=== PATIENT | male | born 1985 ===

== ENCOUNTER 2023-12-26 12:56 | Inpatient (IN) | payer OTHER, SELFPAY ==
[2023-12-24] VITALS (10 sets, daily range): BP systolic 119–144; BP diastolic 69–84; BMI 31.0; BMI 30.4
--- NOTE | 2023-12-24 18:24 | ED.GENMED ---
History of Present Illness
General
Chief Complaint: Abdominal Pain
Source: patient
Exam Limitations: none
Time Seen by Provider: 12/24/23 18:02
History of Present Illness
History of Present Illness:
This is a 38 year old male that is brought in from the [facility] with c/o decreased urine output and not getting his medication. Patient state that he was arrested on Tuesday. State that he has not had any of his antirejection medication for the past
4 days. States that he normally urinates 4-5 times daily but he is only urinating once daily. Denies any fever, chills, chest pain, SOB, abd pain, nausea, vomiting, diarrhea, headache, dizziness, urinary burning.
Past History
Past History
ED Past Medical History: HTN, NIDDM and Renal failure
ED Past Surgical History: Urological (Kidney transplant 1.5 years ago at [facility]. ) and Other (gastric bypass, Left arm fistula, )
Social History
Tobacco: Non-smoker
Alcohol: None
Personal: Single
Living: [facility]dc
Review of Systems
Review of Systems
All Other Systems: ROS reviewed and negative except as documented in HPI and ROS
Constitutional: Reports no symptoms; Denies fever or chills
EENT: Reports no symptoms
Respiratory: Reports no symptoms; Denies cough or trouble breathing
Cardiac: Reports no symptoms; Denies chest pain
ABD/GI: Reports no symptoms; Denies abdominal pain, nausea, vomiting or diarrhea
: Reports other (Decreased output); Denies dysuria, frequency or urgency
Musculoskeletal: Reports no symptoms
Skin: Reports no symptoms
Neurological: Reports no symptoms; Denies dizzy or headache
Psychiatric: Reports no symptoms
Phy Exam
General Physical Exam
General Presentation: well appearing and no apparent distress
General age: appears stated age
General Skin: warm and dry
General Habitus: normal
General Mental: alert
General Hydration: appears well hydrated
ENT Exam
ENT Exam: TM's normal, pharynx normal and neck supple
Eye Exam
Eye Exam: EOMI
Cardiovascular Exam
Cardiovascular Exam: regular rate/rhythm, no edema, no murmur and normal peripheral pulses
Pulmonary Exam
Pulmonary Exam: lungs clear, no respiratory distress, no rales, chest non tender, no crackles, no rhonchi, no wheezing and no cough
Gastrointestinal Exam
Gastrointestinal Exam: normal bowel sounds, soft, no organomegaly, no pulsatile mass, non distended and tender (Slight LLQ only with palpation)
Musculoskeletal Exam
Musculoskeletal Exam: full ROM and no edema
Skin Exam
Skin Exam: normal color, warm/dry, no rash and no petechia
Psychiatric Exam
Psychiatric Exam: normal mood/affect
Course
Orders/Labs/Results
Orders:
Orders
12/24/23 Dinner
Potassium, 2 Gram
At Your Request: Full Participation
Low Potassium: Sodium, 2 Gram
12/24/23 17:15
Complete Blood Count/With Diff Urgent
Comprehensive Metabolic Panel Urgent
Magnesium Urgent
Comment: ADD ON
Phosphorus Urgent
Comment: ADD ON
12/24/23 18:22
0.9% Sodium Chloride 1000 ml [Nss] 1,000 ml IV BOLUS
12/24/23 18:30
Electrocardiogram (*1) Urgent
Reason for Study: Other
Other Reason for Exam: history of kidney disease
EKG- Treatment ONCE
12/24/23 18:33
Urinalysis Reflex To Culture Urgent
Date Specimen was Collected: 12/24/23
Time Specimen was Collected: 18:29
12/24/23 19:16
Mycophenolate [Cellcept] 500 mg PO NOW STA
12/24/23 19:19
Tacrolimus [Prograf] 1 mg PO NOW STA
Tacrolimus [Prograf] 5 mg PO NOW STA
12/24/23 20:11
Admit/Transfer Patient As Directed
Co-Sign Provider:
Level of Care: Observation services
Assign to:: Medical/Surgical
Physician / Group: hafsa forrest
Diagnosis: kidney transplant [facility] out of his anti-rejection meds;Oliguria poss larry
12/24/23 20:12
Code Status As Directed
Resuscitation Status: Full Code
12/24/23 20:15
Add On- LAB Urgent
Tests Added?: mag, phos
PRN Pain Medication Management As Directed
May give lesser potent ordered pain med per pt: Yes
preference::
Protocol:: Medication orders for pain may be administered in a
manner that supports deferring to patient preference
when the pt is:
- Requesting an ordered lesser potent pain medication.
Least to most potent pain medications are defined
as: acetaminophen < NSAID < tramadol < opioids
(morphine, oxycodone, hydromorphone).
- Requesting a lesser dose of the same medication IF
ORDERED.
- Requesting a less intrusive route of administration
if both routes are prescribed by the provider (PO <
IV).
12/24/23 20:26
Prednisone [Deltasone] 5 mg PO NOW STA
12/24/23 22:26
0.9% Sodium Chloride 1000 ml [Nss] 1,000 ml IV 60 mls/hr
Acetaminophen [Tylenol] 650 mg PO Q4HPRN PRN
Sodium Bicarbonate 1,300 mg PO BID
12/24/23 22:26
Case Management Consult ONCE
Case Management Consult: Discharge Planning
Requested By:: PHYSICIAN
Comment: pt from [facility] thy have not had his kidney anti rejection meds in 4 days and wont have until
possibly tuesday
Activity As Directed
Activity Level: As Tolerated
Intake/ Output As Directed
Frequency: Per unit guidelines
Vital Signs As Directed
Frequency: Per unit guidelines
Weight As Directed
Frequency: Daily
DX Deep Vein Thrombosis Video Routine
DX Deep Vein Thrombosis Video Routine
12/25/23 06:00
Complete Blood Count/With Diff IN AM
Comprehensive Metabolic Panel IN AM
Glycohemoglobin (HgbA1c) IN AM
12/25/23 07:30
Insulin Aspart Corrective Low [Novolog Flexpen-Low Resistance] See Protocol SC AC
12/25/23 08:00
Calcitriol [Rocaltrol] 0.25 mcg PO DAILY
Cholecalciferol (Vitamin D3) [VITAMIN D3 (cholecalciferol)] 50 mcg PO DAILY
Ferrous Sulfate [Feosol] 325 mg PO BID
Heparin 5,000 units SC Q12
Prednisone [Deltasone] 5 mg PO DAILY
Tacrolimus Xr [Envarsus Xr] 2 mg PO DAILY
Tacrolimus Xr [Envarsus Xr] 4 mg PO DAILY
mycophenolate mofetil 500 mg PO BID
12/26/23 06:00
Complete Blood Count/With Diff IN AM
Comprehensive Metabolic Panel IN AM
12/31/23 08:00
Ergocalciferol [Drisdol (Vitamin D2)] 50,000 units PO SA
Abnormal Lab Results
12/24/23 12/24/23
17:15 18:33
RBC 4.60 L 10^6/uL
(4.70-6.10)
Absolute Lymphs (auto) 0.7 L 10^3/uL
(1.2-3.4)
Neutrophils % 80.6 H %
(42.2-75.2)
Lymphocytes % 9.7 L %
(20.5-51.1)
Potassium 5.2 H mmol/L
(3.5-5.1)
BUN 27 H mg/dl
(9-20)
Creatinine 1.5 H mg/dL
(0.7-1.3)
Glucose 149 H mg/dl
(70-99)
Urine Glucose Trace A
(Negative)
12/24/23 17:15
12/24/23 17:15
Hyperkalemia, Renal insufficiency (no prior labs for comparison), Dehydration, hyperglycemia. Urine negative for infection.
Vital Signs
Initial and Last Documented VS:
Initial Vital Signs
Temp Pulse Resp BP Pulse Ox
97.8 F 86 17 140/84 97
12/24/23 16:54 12/24/23 16:54 12/24/23 16:54 12/24/23 16:54 12/24/23 16:54
Last Documented Vital Signs
Temp Pulse Resp BP Pulse Ox
97.9 F 85 14 143/83 98
12/24/23 23:55 12/24/23 23:55 12/24/23 23:55 12/24/23 23:55 12/24/23 23:55
MDM/Problems Addressed
Differential Diagnosis Includes:
Dehydration, Kidney rejection
MDM/Problems Addressed:
This is a 38 year old male that comes in with c/o not getting any of his medication for 4 days and his urine output has been decreased.
Will check labs, give IV fluids and get list of patient medication as to give him his meds.
Called and spoke with the Nursing Home nurse. She confirmed that the patient had not had his medication for 4 days. Explained to her that the patient could not be sent back unless they had his medication. Awaiting a call back.
Nurse Yonny called back and they are unable to get patient anti-rejection medication until possible Tuesday and they are still not sure that they are coming in then. Back into see patient. Explained that the he will need to be admitted until they can
get his medication. Hospitalist notified.
Chronic conditions affecting care: Kidney disease
Acute Exacerbation and/or Progression of Chronic Illness:
Kidney transplant
Acute Exacerbation and/or Progression of Chronic Illness: Kidney disease
*Pulse Oximetry
Patient hypoxic: no
*EKG
Interpreted by ED Provider?: Yes
Heart Rate: 86
Rate: normal
Rhythm: sinus
[place]: normal axis
Interval: normal interval
QRS Pattern: normal QRS
Ischemia: no ischemia
*Brush Fabrication Supervisor Interpretation
Rate: Brush Fabrication Supervisor- N/A
*Critical Care Note
Total Time (30-74mins, 75-104mins- exclusive of procedures): Not Applicable
ED Attending Note
-
Portions of this chart may have been created with voice recognition software.� Occasional wrong word or��sound alike� substitutions may have occurred due to the inherent limitations of voice recognition software.
Discharge Plan
Departure
Patient Disposition: Admit
Date of Disposition: 12/24/23
Time of Disposition: 20:08
Admit to: Med/Surg
Presentation/result/management discussed w/ accepting MD/DO: Hospitalist
Patient with high blood pressure during this ER visit?: No
Condition: Good
Covid-19: Not Applicable
Discharge Problem:
Hospital admission due to social situation
Interventions
Interventions:
*Risk Screen - Suicide Last Done: 12/24/23 17:04
*General Assessment Last Done: 12/24/23 17:04
*Neglect/Abuse Screening Last Done: 12/24/23 17:04
ED- Fall Risk Assessment Last Done: 12/24/23 17:04
*ED COVID-19 Vaccine History Last Done: 12/24/23 17:04
*Nursing Disposition Last Done: 12/24/23 22:19
CO-Difcoy-Pmbqdblffb Assessment Last Done: 12/24/23 17:04
Discharge Date and Time
Discharge Date/Time: 12/24/23 22:19
[2023-12-24] MEDS: NSS 1000 IV ×2 (18:42→23:09)
[2023-12-24 18:43] LABS: % Basophils 0.5 % (0-2); % Eosinophils 0.5 % (0-6); % Immature Granulocytes 0.5 % (0-0.5); % Lymphocytes 9.7 % (20.5-51.1); % Monocytes 8.2 % (1.7-9.3); % Neutrophils 80.6 % (42.2-75.2); Absolute Lymphocytes 0.7 10^3/uL (1.2-3.4); Absolute Monocytes 0.6 10^3/uL (0.1-0.6); Absolute Neutrophils 6.1 10^3/uL (1.4-6.5); Hematocrit 40.3 % (39.0-52.0); Hemoglobin 13.8 g/dL (13.0-18.0); Mean Corp Hgb Conc. 34.2 g/dL (33.0-37.0); Mean Corpuscular Volume 87.6 fL (80.0-94.0); Nucleated Red Blood Cells % 0 % (-); Platelet Count 324 10^3/uL (130-400); Red Cell Dist. Width 13.6 % (11.5-14.5); White Blood Cell Count 7.5 10^3/uL (4.8-10.8)
[2023-12-24 18:44] LABS: Urine Albumin Trace (Neg - Trace); Urine Bilirubin Negative (Negative); Urine Character Clear (Clear); Urine Color Yellow; Urine Glucose Trace (Negative); Urine Ketone Negative (Negative); Urine Leukocyte Negative (Negative); Urine Nitrite Negative (Negative); Urine Occult Blood Negative (Negative); Urine Specific Gravity 1.015 (<1.030); Urine Urobilinogen Negative (Neg - 1+)
[2023-12-24 19:02] LABS: ALT (SGPT) 19 U/L (0-50); AST (SGOT) 29 U/L (17-59); Alkaline Phosphatase 61 U/L (38-126); Blood Urea Nitrogen 27 mg/dl (9-20); Calcium 9.7 mg/dl (8.4-10.2); Carbon Dioxide 22 mmol/L (22-30); Chloride 103 mmol/L (98-107); Estimated Creatinine Clearance 86 ml/min; Glucose 149 mg/dl (70-99); Potassium 5.2 mmol/L (3.5-5.1); Sodium 141 mmol/L (135-145); Total Protein 7.9 g/dl (6.3-8.2); eGFR > 60.00
[2023-12-24] MEDS: CELLCEPT 500 MG PO (19:30)
[2023-12-24] MEDS: PROGRAF 1 MG PO (19:31)
[2023-12-24] MEDS: PROGRAF 5 MG PO (19:31)
--- NOTE | 2023-12-24 20:26 | HPS.HSE ---
Family Physician
-
Family Physician: Facility [facility]
Chief Complaint
-
Not getting antirejection Rx for KTP at [facility] for last 4 days
History of Present Illness
38M who was arrested 4 days ago 12/21/23 BiB from [facility] HX KTP evalaution for decreased urine output
- He is not getting OP Rx forlast 4 days not getting his medication. Patient state that he was arrested on Tuesday. - - Reports he has not had any of his antirejection medication for the past 4 days.
- Normally urinates 4-5 times daily but he is only urinating once daily.
ROS:
Denies any fever, chills, chest pain, SOB, abd pain, nausea, vomiting, diarrhea, headache, dizziness, urinary burning.
Medical History
Past Medical History
Past Medical History: Reports NIDDM and Renal Failure
Past Surgical History: Reports Urological (Kidney transplant 1.5 years ago at [facility], Lt arm AVF, gastric bypass, Left arm)
Social History
Tobacco: Non-smoker
Alcohol: None
Living: Detention ([facility] since 12/21/23 )
Family History
Family History: Not pertinent
Allergies / Home Medications
Allergies reflects when Allergies were last updated in [facility].
Home Medications with original date entered in [facility]
Allergy/Medication List:
Allergies
Allergy/AdvReac Type Severity Reaction Status Date / Time
No Known Allergies Allergy Verified 12/24/23 18:32
Home Medications
calcitriol 0.25 mcg capsule 0.25 mcg PO DAILY 12/24/23
cholecalciferol (vitamin D3) 50 mcg (2,000 unit) capsule (Vitamin D3) 50 mcg PO DAILY 12/24/23
ergocalciferol (vitamin D2) 1,250 mcg (50,000 unit) capsule 1,250 mcg PO SA 12/24/23
ferrous sulfate 325 mg (65 mg iron) tablet 325 mg PO BID 12/24/23
mycophenolate mofetil 500 mg tablet (CellCept) 500 mg PO BID 12/24/23
prednisone 5 mg tablet 5 mg PO DAILY 12/24/23
sodium bicarbonate 650 mg tablet 1,300 mg PO BID 12/24/23
tacrolimus 1 mg tablet,extended release 24 hr (Envarsus XR) 2 mg PO DAILY 12/24/23
tacrolimus 4 mg tablet,extended release 24 hr (Envarsus XR) 4 mg PO DAILY 12/24/23
Review of Systems
-
Constitutional: Reports No Symptoms
EENT: Reports No Symptoms
Respiratory: Reports No Symptoms
Cardiac: Reports No Symptoms
Abdomen/GI: Reports No Symptoms
: Reports Other (low urine output )
Musculoskeletal: Reports No Symptoms
Skin: Reports No Symptoms
Neurological: Reports No Symptoms
Endocrine: Reports No Symptoms
Hematologic/Lymphatic: Reports No Symptoms
Psych: Reports No Symptoms
Physical Exam
Vital Signs
Vital Signs
Temp Pulse Resp BP Pulse Ox
97.8 F 86 17 129/78 98
12/24/23 16:54 12/24/23 16:54 12/24/23 16:54 12/24/23 18:00 12/24/23 18:15
Physical Exam
General: Well Developed, Well Nourished and No Apparent Distress
HEENT: NormoCephalic, Moist mucous membranes and Atraumatic
Respiratory: Clear
Cardiac: S1/S2 and Regular Rhythm; No Murmur or Rub
GI: Soft, Non Tender, Non Distended and Normal Bowel Sounds; No Organomegaly
Rectal: Deferred by Provider
Genito-urinary: Other (KTP at RLQ abdomen )
Musculoskeletal: No Clubbing, No Cyanosis and No Edema
Skin: No Rash
Neuro: Nonfocal/grossly intact
Laboratory Results
-
12/24/23 17:15
12/24/23 17:15
Laboratory Results
Total Bilirubin 1.0 mg/dl (0.2-1.3) 12/24/23 17:15
AST 29 U/L (17-59) 12/24/23 17:15
ALT 19 U/L (0-50) 12/24/23 17:15
Alkaline Phosphatase 61 U/L (38-126) 12/24/23 17:15
Data Reviewed
-
Lab Data: Labs Reviewed by me
Impression/Plan
-
Laboratory Tests
12/24/23
17:15
Hgb 13.8
Sodium 141
Potassium 5.2 H
Chloride 103
Carbon Dioxide 22
BUN 27 H
Creatinine 1.5 H
eGFR > 60.00
Glucose 149 H
Phosphorus Pending
Magnesium Pending
NO PRIOR hospitalist admission:
38M who was arrested 4 days ago Tue12/21/23 BiB from [facility] HX KTP evalaution for decreased urine output
He is not getting OP Rx forlast 4 days not getting his medication
ASSESSMENT & PLAN
KTP patient who is not getting anti rejection Meds for last 4 days since arrested on Tue12/21/23
Under the custody at [facility]
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
- ER ROTARY ENGRAVER d/w [facility] RN may be Meds will be available on Tuesday
- Per [facility] , cannot obtain his OP Rx till Tuesday
- resume all OP Meds with dose started tonight
- CM consult to liaise with [facility] clinic to expedite for OP Meds
Relatively decrease in urine output
Mild Hyperkalemia
Renal insufficiency
Baseline Cr is low 1s since KTP
- unknown baseline Cr
- s/p 1 L NS at ER then cont IV NS @ 60/h
- f/u IOs, BMP daily
- f/u CMP daily
- Renal diet
Denied HX DM
DVT Px: SQH
Full code
Obs MS
[2023-12-24 20:35] LABS: Phosphorus 4.2 mg/dl (2.5-4.5)
[2023-12-24] MEDS: DELTASONE 5 MG PO (21:16)
[2023-12-24] MEDS: SODIUM BICARBONATE 1300 MG PO (23:09)
[2023-12-25 07:50] VITALS: BP 132/74
[2023-12-25 08:26] LABS: % Basophils 0.7 % (0-2); % Eosinophils 2.4 % (0-6); % Immature Granulocytes 0.4 % (0-0.5); % Lymphocytes 17.7 % (20.5-51.1); % Neutrophils 66.8 % (42.2-75.2); Absolute Basophils 0.1 10^3/uL (0-0.2); Absolute Eosinophils 0.2 10^3/uL (0-0.7); Absolute Lymphocytes 1.2 10^3/uL (1.2-3.4); Absolute Monocytes 0.8 10^3/uL (0.1-0.6); Absolute Neutrophils 4.5 10^3/uL (1.4-6.5); Hematocrit 39.7 % (39.0-52.0); Hemoglobin 13.2 g/dL (13.0-18.0); Mean Corp Hgb Conc. 33.2 g/dL (33.0-37.0); Mean Corpuscular Hgb 29.5 pg (27.0-31.0); Mean Corpuscular Volume 88.8 fL (80.0-94.0); Mean Platelet Volume 9.7 fL (7.4-10.4); Nucleated Red Blood Cells % 0 % (-); Platelet Count 289 10^3/uL (130-400); Red Blood Cell Count 4.47 10^6/uL (4.70-6.10); Red Cell Dist. Width 13.5 % (11.5-14.5); White Blood Cell Count 6.7 10^3/uL (4.8-10.8)
[2023-12-25 08:48] LABS: ALT (SGPT) 16 U/L (0-50); AST (SGOT) 22 U/L (17-59); Albumin 4.2 g/dl (3.5-5.0); Alkaline Phosphatase 78 U/L (38-126); Blood Urea Nitrogen 24 mg/dl (9-20); Calcium 9.6 mg/dl (8.4-10.2); Carbon Dioxide 23 mmol/L (22-30); Chloride 106 mmol/L (98-107); Estimated Creatinine Clearance 98 ml/min; Glucose 86 mg/dl (70-99); Potassium 4.9 mmol/L (3.5-5.1); Sodium 141 mmol/L (135-145); Total Bilirubin 1.1 mg/dl (0.2-1.3); Total Protein 6.8 g/dl (6.3-8.2); eGFR > 60.00
--- NOTE | 2023-12-25 08:57 | W.PN.HOSP.TC ---
Addendum entered and electronically signed by Roshan Peterson MD 12/26/23 09:16:
Previous note is incorrect. Corrected text:
59yo M with PMHX of Buerger disease, ESRD s/p kidney transplant 1.5 years ago brought from [facility] with complains of oliguria and that he was not taking his antirejection drugs due to availability for 4 days before admission. Baseline Cr as per patient
is 1.1-1.3
A/P:
#SALLY with oliguria
improved, able to urinate
UA neg for infection
CT showed transplanted kidney on R withput signs of hydronephrosis or nephrolithiasis
IVF
COnt Cellcept, tacrolimus and prednisone
#Constipation
Laxatives
DVT ppx lovenox
FUll code
I have spent at least 58min reviewing chart, test results, communication with consultants and direct patient care
Original Note:
Today's Communication/Plan
-
see PN
Assessment / Plan
Assessment / Plan
59yo M with HTN, HLD came with 3 weeks of progressive SOB, managed for possible asthma exacerbation as evidenced by perypheral eosynophilia. Has long standing Hx of nnasal congestion (for years), found chronic sinusitis on CT. Was previously
recommneeded for sinus surgery.
A/P:
#Acute respiratory insufficiency most likely 2/2 asthma exacerbation
#postnasal drip 2.2 chronic sinusitis (suspect allergic)
Taper steroids, Zpack for antiinflammatory properties
Will need d/c on Symbicort
Outpatient pulm follow up
walking pulse O2 before d/c
#Chronic sinusitis
most likely allergic
Zyrtec
ENT consult
DVT ppx lovenox
FUll code
I have spent at least 58min reviewing chart, test results, communication with consultantants and direct patient care
Anticipated Discharge: 24 - 48 hours
Subjective/Interval History
-
Date of Service: December 25, 2023
Objective Data
-
Labs:
Laboratory Results
12/25/23
07:43
WBC 6.7
Hgb 13.2
Hct 39.7
Plt Count 289
Sodium 141
Potassium 4.9
Chloride 106
Carbon Dioxide 23
BUN 24 H
Creatinine 1.3
Glucose 86
Calcium 9.6
Total Bilirubin 1.1
AST 22
ALT 16
Alkaline Phosphatase 78
Vital Signs:
Vital Signs
Temp Pulse Resp BP Pulse Ox
98.3 F 66 16 132/74 98
12/25/23 07:50 12/25/23 07:50 12/25/23 07:50 12/25/23 07:50 12/25/23 07:50
I&O
12/24/23 12/25/23 12/26/23
06:59 06:59 06:59
Intake Total 420 / 420
Balance 420 / 420
Review of Systems
-
History Source: Patient
All other systems: Reviewed and negative
Genitourinary: Reports Flank Pain
Physical Exam
-
General: No Apparent Distress
HEENT: Normocephalic
Respiratory: Clear to Auscultation
GI: Soft, Nondistended and Tender (in suprapubic area)
Musculoskeletal: No Clubbing, No Cyanosis and No Edema
Neuro: Awake, Alert, Oriented and AO x 3
Psych: Calm
[2023-12-25 09:10] LABS: Glucose - Point of Care 101 mg/dl (70-99)
--- NOTE | 2023-12-25 09:19 | CM ---
Pt is currently under arrest with [facility].He had a kidney transplant at [facility] 1.5 yrs ago. He was incarcerated 12/21/23 and has not had his antirejection meds x4 days.Urinary out pt has decreased and brought to .Spoke
with Sommer at [facility] [phone] she said his master scheduler was to drop off meds but has not yet. As per Sommer he may be released from care home Tuesday12/27/23. notified.
Pharmacy [facility]
PCP Dr Egan
[facility]
report [phone]
fax [phone]
PLAN Return to [facility]
[2023-12-25] MEDS: ROCALTROL 0.25 MCG PO (09:29)
[2023-12-25] MEDS: SODIUM BICARBONATE 1300 MG PO ×2 (09:29→20:13)
[2023-12-25] MEDS: ENVARSUS XR 4 MG PO (09:29)
[2023-12-25] MEDS: ENVARSUS XR 2 MG PO (09:29)
[2023-12-25] MEDS: CELLCEPT 500 MG PO ×2 (09:30→20:13)
[2023-12-25] MEDS: FEOSOL 325 MG PO ×2 (09:30→20:13)
[2023-12-25] MEDS: VITAMIN D3 (cholecalciferol) 50 MCG PO (09:30)
[2023-12-25] MEDS: DELTASONE 5 MG PO (09:30)
[2023-12-25] MEDS: HEPARIN 5000 UNITS SC ×2 (09:30→20:13)
[2023-12-25 11:16] LABS: Glycohemoglobin (HgbA1c) 5.7 % (4.0-5.6)
[2023-12-25 13:24] LABS: Glucose - Point of Care 96 mg/dl (70-99)
[2023-12-25 15:55] VITALS: BP 153/75
[2023-12-25] MEDS: NSS 1000 IV (16:00)
[2023-12-25 23:52] VITALS: BP 150/85
[2023-12-26] MEDS: NSS 1000 IV (05:26)
[2023-12-26 06:00] VITALS: BMI 30.2
[2023-12-26 06:55] LABS: % Eosinophils 3.3 % (0-6); % Immature Granulocytes 0.3 % (0-0.5); % Lymphocytes 19.6 % (20.5-51.1); % Monocytes 11.5 % (1.7-9.3); % Neutrophils 64.3 % (42.2-75.2); Absolute Basophils 0.1 10^3/uL (0-0.2); Absolute Eosinophils 0.2 10^3/uL (0-0.7); Absolute Lymphocytes 1.3 10^3/uL (1.2-3.4); Absolute Monocytes 0.8 10^3/uL (0.1-0.6); Absolute Neutrophils 4.3 10^3/uL (1.4-6.5); Hematocrit 38.9 % (39.0-52.0); Hemoglobin 13.3 g/dL (13.0-18.0); Mean Corp Hgb Conc. 34.2 g/dL (33.0-37.0); Mean Corpuscular Hgb 29.8 pg (27.0-31.0); Mean Platelet Volume 10.2 fL (7.4-10.4); Nucleated Red Blood Cells % 0 % (-); Platelet Count 246 10^3/uL (130-400); Red Blood Cell Count 4.47 10^6/uL (4.70-6.10); Red Cell Dist. Width 13.6 % (11.5-14.5); White Blood Cell Count 6.7 10^3/uL (4.8-10.8)
[2023-12-26 07:25] VITALS: BP 131/90
[2023-12-26 07:26] LABS: ALT (SGPT) 15 U/L (0-50); AST (SGOT) 20 U/L (17-59); Albumin 4.2 g/dl (3.5-5.0); Alkaline Phosphatase 80 U/L (38-126); Blood Urea Nitrogen 29 mg/dl (9-20); Calcium 9.3 mg/dl (8.4-10.2); Carbon Dioxide 20 mmol/L (22-30); Chloride 110 mmol/L (98-107); Estimated Creatinine Clearance 91 ml/min; Glucose 85 mg/dl (70-99); Potassium 5.1 mmol/L (3.5-5.1); Sodium 142 mmol/L (135-145); Total Bilirubin 0.7 mg/dl (0.2-1.3); Total Protein 6.8 g/dl (6.3-8.2); eGFR > 60.00
[2023-12-26] MEDS: ROCALTROL 0.25 MCG PO (08:08)
[2023-12-26] MEDS: FEOSOL 325 MG PO ×2 (08:14→22:47)
[2023-12-26] MEDS: DELTASONE 5 MG PO (08:14)
[2023-12-26] MEDS: ENVARSUS XR 2 MG PO (08:15)
[2023-12-26] MEDS: SODIUM BICARBONATE 1300 MG PO (08:15)
[2023-12-26] MEDS: CELLCEPT 500 MG PO ×2 (08:15→22:47)
[2023-12-26] MEDS: VITAMIN D3 (cholecalciferol) 50 MCG PO (08:15)
[2023-12-26] MEDS: ENVARSUS XR 4 MG PO (08:19)
[2023-12-26] MEDS: HEPARIN 5000 UNITS SC ×2 (08:19→22:48)
--- NOTE | 2023-12-26 09:09 | W.PN.HOSP.TC ---
Today's Communication/Plan
-
Bicarb drip
Nephro consult
Assessment / Plan
Assessment / Plan
59yo M with PMHX of Buerger disease, ESRD s/p kidney transplant 1.5 years ago brought from [facility] with complains of oliguria and that he was not taking his antirejection drugs due to availability for 4 days before admission. Baseline Cr as per patient
is 1.1-1.3
As per CM - lawer had to deliver medications to the senior care, but never did. Currently expected to be released from senior care on Tuesday and patient confirmed that he has all his medications at home
A/P:
#SALLY with oliguria
improved, able to urinate
UA neg for infection
CT showed transplanted kidney on R withput signs of hydronephrosis or nephrolithiasis
IVF
Nephrology consult
COnt Cellcept, tacrolimus and prednisone
#Constipation
Laxatives
DVT ppx lovenox
FUll code
I have spent at least 38min reviewing chart, test results, communication with consultants and direct patient care
Anticipated Discharge: Within 24 hours
Subjective/Interval History
-
Date of Service: December 26, 2023
Objective Data
-
Labs:
Laboratory Results
12/26/23
06:28
WBC 6.7
Hgb 13.3
Hct 38.9 L
Plt Count 246
Sodium 142
Potassium 5.1
Chloride 110 H
Carbon Dioxide 20 L
BUN 29 H
Creatinine 1.4 H
Glucose 85
Calcium 9.3
Total Bilirubin 0.7
AST 20
ALT 15
Alkaline Phosphatase 80
Vital Signs:
Vital Signs
Temp Pulse Resp BP Pulse Ox
98 F 68 18 131/90 98
12/26/23 07:25 12/26/23 07:25 12/26/23 07:25 12/26/23 07:25 12/26/23 07:25
I&O
12/25/23 12/26/23 12/27/23
06:59 06:59 06:59
Intake Total 420 / 420 960 / 960
Balance 420 / 420 960 / 960
Review of Systems
-
History Source: Patient
All other systems: Reviewed and negative
Physical Exam
-
General: No Apparent Distress
HEENT: Normocephalic
Respiratory: Clear to Auscultation
GI: Soft
Musculoskeletal: No Clubbing, No Cyanosis and No Edema
Skin: Warm
Neuro: Awake, Alert, Oriented and AO x 3
Psych: Calm
[2023-12-26] MEDS: NSS IV (09:55)
[2023-12-26] MEDS: MIRALAX 17 GRAMS PO (09:55)
[2023-12-26] MEDS: SODIUM BICARBONATE 1150 MEQ IV (10:05)
--- NOTE | 2023-12-26 13:37 | W.CON.NEPH ---
Consultation
-
Date/Time Consultation Requested: 12/26/2023 12 PM
Date/Time Consultation Performed: 12/26/2023 1 PM
Requesting Provider: Dr. Peterson
Performing Provider: Dr. Arriola
Reason for Consultation: Renal transplant
Medical History
-
Chief Complaint: Missing transplant medications
History of Present Illness:
This is a 38-year-old gentleman who has undergone donor renal transplant at [facility] about a year and a half ago.He has been on a triple immunosuppressive regimen including mycophenolate, inversus, prednisone. Apparently he also has
metabolic acidosis on bicarbonate therapy as well as secondary hyperparathyroidism on calcitriol therapy. He is rested on Tuesday and therefore since that time he has not had any of his transfer medications. He reported this to the assisted and
they brought him to the emergency room. As it was obvious that the assisted could not obtain his transplant medications he was admitted until this could be sorted out.
Past Medical History
donor renal transplant [facility], metabolic acidosis, gastric bypass, left arm AV fistula, history of ESRD
Social History
Tobacco: Non-Smoker
Alcohol: None
Family History
Family History: Not Pertinent
Allergies / Home Medications
Allergy/AdvReac Type Severity Reaction Status Date / Time
No Known Allergies Allergy Verified 12/24/23 18:32
�Medication �Instructions �Recorded �Confirmed �Type
calcitriol 0.25 mcg capsule 0.25 mcg PO DAILY Supplement 12/24/23 12/24/23 History
cholecalciferol (vitamin D3) 50 50 mcg PO DAILY Supplement 12/24/23 12/24/23 History
mcg (2,000 unit) capsule (Vitamin
D3)
ergocalciferol (vitamin D2) 1,250 1,250 mcg PO SA Supplement 12/24/23 12/24/23 History
mcg (50,000 unit) capsule
ferrous sulfate 325 mg (65 mg 325 mg PO BID Supplement 12/24/23 12/24/23 History
iron) tablet
mycophenolate mofetil 500 mg 500 mg PO BID anti proliferative 12/24/23 12/24/23 History
tablet (CellCept)
prednisone 5 mg tablet 5 mg PO DAILY Anti-Inflammatory 12/24/23 12/24/23 History
sodium bicarbonate 650 mg tablet 1,300 mg PO BID Acid balance 12/24/23 12/24/23 History
tacrolimus 1 mg tablet,extended 2 mg PO DAILY anti rejection 12/24/23 12/24/23 History
release 24 hr (Envarsus XR)
tacrolimus 4 mg tablet,extended 4 mg PO DAILY anti rejection 12/24/23 12/24/23 History
release 24 hr (Envarsus XR)
Review of Systems
-
No chest pain or shortness of breath. No issues with urination.
All other systems: Negative unless noted
Physical Exam
Vital Signs
Vital Signs
Temp Pulse Resp BP Pulse Ox
98 F 68 18 131/90 98
12/26/23 07:25 12/26/23 07:25 12/26/23 07:25 12/26/23 07:25 12/26/23 07:25
Lab Results
WBC 6.7 10^3/uL (4.8-10.8) 12/26/23 06:28
RBC 4.47 10^6/uL (4.70-6.10) L 12/26/23 06:28
Hgb 13.3 g/dL (13.0-18.0) 12/26/23 06:28
Hct 38.9 % (39.0-52.0) L 12/26/23 06:28
Plt Count 246 10^3/uL (130-400) 12/26/23 06:28
Sodium 142 mmol/L (135-145) 12/26/23 06:28
Potassium 5.1 mmol/L (3.5-5.1) 12/26/23 06:28
Chloride 110 mmol/L (98-107) H 12/26/23 06:28
Carbon Dioxide 20 mmol/L (22-30) L 12/26/23 06:28
BUN 29 mg/dl (9-20) H 12/26/23 06:
Creatinine 1.4 mg/dL (0.7-1.3) H 12/26/23 06:
eGFR > 60.00 12/26/23 06:28
Glucose 85 mg/dl (70-99) 12/26/23 06:
Calcium 9.3 mg/dl (8.4-10.2) 12/26/23 06:
Phosphorus 4.2 mg/dl (2.5-4.5) 12/24/23 17:15
Albumin 4.2 g/dl (3.5-5.0) 12/26/23 06:28
CT abdomen and pelvis on 12/25/2027
IMPRESSION:
Small fat only containing left inguinal hernia.
Atrophic bilateral [place] kidneys. Transplant kidney in right iliac fossa without gross focal unenhanced abnormality.
Prior gastric surgery, presumably gastric bypass surgery.
Physical Exam
Patient is awake alert oriented and in no distress. Mood and affect were pleasant, insight and judgment were good. Pupils are equal round and reactive to light, extraocular movements are intact, sclera were anicteric. Hearing was normal, ears and
nose are intact. Oropharynx was clear. Neck was supple with trachea midline and no thyromegaly. Heart was regular rate and rhythm without rubs. Lower extremities without edema. Lungs were clear to auscultation bilaterally and with normal
excursion. Abdomen was soft, nontender, with normal active bowel sounds, and no hepatosplenomegaly. Skin was without rash and with normal turgor. AV fistula left upper arm was with good thrill and bruit
Data Reviewed
-
CT Scan: Report Reviewed by me
Medical Tests (Nuc Med, Echo etc): Image Personally Visualized and interpreted (EKG on 12/24/2023 by my reading shows normal sinus rhythm)
Labs: Labs Reviewed by me
Old Records: Requested
Assessment/Plan
-
Assessment
donor renal transplant [facility]
Buerger's disease
Metabolic acidosis
Secondary hyperparathyroidism
Patient reports baseline creatinine around 1.2-1.3
Plan
IV fluid with bicarbonate
Outpatient immunosuppressive therapy restarted
Await ability of immunosuppressive therapy at present
Patient states that he is due for his outpatient transplant nephrology visit in the very near future
Follow BMP
--- NOTE | 2023-12-26 14:13 | PTCARENOTE ---
patient reports small amount of stool since takikng Miralax, tolerating diet, showered, independent in room once not shackled, skilled nursing guards at bedside, vss, will continue to monitor.
[2023-12-26 15:23] VITALS: BP 136/82
[2023-12-26 23:45] VITALS: BP 130/71
[2023-12-27] MEDS: SODIUM BICARBONATE 1150 MEQ IV (02:08)
[2023-12-27 06:00] VITALS: BMI 30.4
[2023-12-27 07:21] VITALS: BP 137/81
[2023-12-27] MEDS: ROCALTROL 0.25 MCG PO (08:28)
[2023-12-27] MEDS: FEOSOL 325 MG PO (08:28)
[2023-12-27] MEDS: ENVARSUS XR 2 MG PO (08:28)
[2023-12-27] MEDS: CELLCEPT 500 MG PO (08:29)
[2023-12-27] MEDS: DELTASONE 5 MG PO (08:29)
[2023-12-27] MEDS: VITAMIN D3 (cholecalciferol) 50 MCG PO (08:29)
[2023-12-27] MEDS: ENVARSUS XR 4 MG PO (08:33)
[2023-12-27] MEDS: HEPARIN 5000 UNITS SC (08:40)
[2023-12-27 08:51] LABS: Blood Urea Nitrogen 22 mg/dl (9-20); Calcium 9.2 mg/dl (8.4-10.2); Carbon Dioxide 24 mmol/L (22-30); Chloride 104 mmol/L (98-107); Estimated Creatinine Clearance 106 ml/min; Glucose 89 mg/dl (70-99); Potassium 4.5 mmol/L (3.5-5.1); Sodium 139 mmol/L (135-145); eGFR > 60.00
--- NOTE | 2023-12-27 10:19 | CM ---
indicated he is ready for dc today .
Spoke with Myriam from [facility] she confirmed that pts antirejection meds were received.
Rn at aware pt is dc today with report number.
Guards will transport via [facility] van
[facility]
report [phone]
fax [phone]
PLAN Return to [facility] today
--- NOTE | 2023-12-27 10:28 | W.PN.HOSP.TC ---
Today's Communication/Plan
-
dc
Assessment / Plan
Assessment / Plan
59yo M with PMHX of Buerger disease, ESRD s/p kidney transplant 1.5 years ago brought from [facility] with complains of oliguria and that he was not taking his antirejection drugs due to availability for 4 days before admission. Baseline Cr as per patient
is 1.1-1.3. Cr remained stable on IVF, patient was producing urine. CM confirmed that [facility] has appropriate medications. CT showed no abnormality with transplanted kidney. Patient is medically stable to be d/c for further close follow up by
team lead in transplant center. Recommend BMP in 3-4 days if still incarcerated.
A/P:
#SALLY with oliguria
improved, able to urinate
UA neg for infection
CT showed transplanted kidney on R without signs of hydronephrosis or nephrolithiasis
IVF
Nephrology consult
COnt Cellcept, tacrolimus and prednisone
#Constipation
Laxatives
DVT ppx lovenox
FUll code
I have spent at least 38min reviewing chart, test results, communication with consultants and direct patient care
Anticipated Discharge: Today
Subjective/Interval History
-
Date of Service: December 27, 2023
Objective Data
-
Labs:
Laboratory Results
12/27/23
06:50
Sodium 139
Potassium 4.5
Chloride 104
Carbon Dioxide 24
BUN 22 H
Creatinine 1.2
Glucose 89
Calcium 9.2
Vital Signs:
Vital Signs
Temp Pulse Resp BP Pulse Ox
98.2 F 69 16 137/81 98
12/27/23 07:21 12/27/23 07:21 12/27/23 07:21 12/27/23 07:21 12/27/23 07:21
I&O
12/26/23 12/27/2312/27/24
06:59 06:59 06:59
Intake Total 960 / 960 6425 / 7341
Balance 960 / 960 326 / 4
Review of Systems
-
History Source: Patient
All other systems: Reviewed and negative
Physical Exam
-
General: No Apparent Distress
Respiratory: Clear to Auscultation
Cardiac: Regular Rhythm
GI: Soft, Nontender and Nondistended
Musculoskeletal: No Clubbing, No Cyanosis and No Edema
Neuro: Awake, Alert, Oriented and AO x 3
Psych: Calm
--- NOTE | 2023-12-27 10:33 | W.DCSUMMARY ---
Discharge Summary
Discharge Data
Date of Admission: 12/26/23
Date of Discharge: 12/27/23
-
Pending Results: No
Hospital Course
59yo M with PMHX of Buerger disease, ESRD s/p kidney transplant 1.5 years ago brought from [facility] with complains of oliguria and that he was not taking his antirejection drugs due to availability for 4 days before admission. Baseline Cr as per patient
is 1.1-1.3. Cr remained stable on IVF, patient was producing urine. CM confirmed that [facility] has appropriate medications. CT showed no abnormality with transplanted kidney. Patient is medically stable to be d/c for further close follow up by
[employer] assistant in transplant center. Recommend BMP in 3-4 days if still incarcerated.
I have spent at least 37min preparing d/c
patient was managed for:
#SALLY with oliguria
#Constipation
Discharge Plan
-
Patient Disposition: [facility]
Discharge Diagnosis/Procedures: SALLY
Diet: Regular
Activity: As tolerated
Driving Restrictions: As prior to admission
Blood Work: BMP in 2-3 days
Referrals:
[facility] [Family Provider] -
Prescriptions:
Continued
prednisone 5 mg Tablet
5 mg PO DAILY
mycophenolate mofetil [CellCept] 500 mg Tablet
500 mg PO BID
sodium bicarbonate 650 mg Tablet
1,300 mg PO BID
ferrous sulfate 325 mg (65 mg iron) Tablet
325 mg PO BID
ergocalciferol (vitamin D2) 1,250 mcg (50,000 unit) Capsule
1,250 mcg PO SA
calcitriol 0.25 mcg Capsule
0.25 mcg PO DAILY
cholecalciferol (vitamin D3) [Vitamin D3] 50 mcg (2,000 unit) Capsule
50 mcg PO DAILY
Envarsus XR 1 mg Tablet Extended Release 24 Hr
2 mg PO DAILY
Rx Instructions:
take with 4mg tab for total of 6mg
Envarsus XR 4 mg Tablet Extended Release 24 Hr
4 mg PO DAILY
Rx Instructions:
take with 2 1mg tabs for total of 6mg
Discharge Orders:
Discharge Patient (As Directed); Ordered 12/27/23
Ordered By: Roshan Peterson
Discharge Date and Time
Print Language: MALAGASY
[2023-12-27 12:27] VITALS: BP 138/85
== END 2023-12-27 12:59 | DRG 683 ==
LOC: 3 WEST ACU 12:56
PROVIDERS: Clinical Nurse Specialist Family Health; ADMITTING PHYSICIAN Internal Medicine; ATTENDING PHYSICIAN Internal Medicine; CONSULT PHYSICIAN Specialist; EMERGENCY PHYSICIAN Student in an Organized Health Care Education/Training Program
DX: N17.9 Acute kidney failure, unspecified (principal); Z94.0 Kidney transplant status; N13.39 Other hydronephrosis; K59.00 Constipation, unspecified; R34 Anuria and oliguria; E11.22 Type 2 diabetes mellitus with diabetic chronic kidney disease; E87.5 Hyperkalemia; I73.1 Thromboangiitis obliterans [Buerger's disease]; T45.1X6A Underdosing of antineoplastic and immunosuppressive drugs, initial encounter; Z91.148 Patient's other noncompliance with medication regimen for other reason; Z98.84 Bariatric surgery status; Z79.84 Long term (current) use of oral hypoglycemic drugs
CPT/HCPCS: 74176; 80048; 80053; 81003; 82962; 83036; 83735; 84100; 85025; 87070; 93005; 96360; 99285